=== PATIENT | female | born 1950 | race Caucasian/White ===

== ENCOUNTER 2016-11-13 11:37 | Day surgery (SDC) | payer MEDICARE ==
[2016-11-07 16:27] VITALS: BMI 25.7
[~2016-11-13 11:37] MED LIST: DEXAMETHASONE SOD PHOSPHATE 10 MG/ML 1 ML VIAL IV ONE; HYDROmorphone 1 MG/ML 1 ML SYRINGE IVP PRN; LACTATED RINGERS 1,000 ML IV SCH; LIDOCAINE 1% 20 ML VIAL (10MG/ML) FOR IV START INTRADERMA PRN; Pre Op ABX Message 1 EACH MISC MISCELLANE ONE; SCOPOLAMINE 1.5MG/72HR PATCH TRANSDERM ONE
[2016-11-13 12:03] VITALS: RESP 16; TEMP 98.1
[2016-11-13] MEDS ORDERED: PROPOFOL 10 MG/ML 20 ML VIAL IV ONE (13:08)
[2016-11-13] MEDS ORDERED: BUPIVACAINE (PF) 0.5% 30 ML VIAL SQ ONE (13:20)
[2016-11-13] MEDS ORDERED: LIDOCAINE 2% INJ 20 MG/ML SQ ONE (13:21)
[2016-11-13 13:54] VITALS: BP 156/72; PULSE 54
--- NOTE | 2016-11-20 22:02 | OP ---
DATE OF SERVICE: SURGEON: CRISTA TREVIÑO DO RN ADVANCED: PREOPERATIVE DIAGNOSIS: Mass, left ring finger. POSTOPERATIVE DIAGNOSIS: Mass, left ring finger. OPERATION: 1. Excision of mass, left ring finger. 2. Neurolysis ulnar digital nerve left ring finger. ANESTHESIA: ESTIMATED BLOOD LOSS: SPECIMENS REMOVED: COMPLICATIONS: OPERATIVE FINDINGS: GROSS PATHOLOGY: This was the 1 to 2 cm fairly well encapsulated mass in the volar ulnar proximal phalanx level of the left ring finger. It was adjacent and pressing on the ulnar digital nerve, but the nerve itself appeared to be uninvolved. The nature of the mass was not clear on direct inspection, it was fibrous in nature. It was sent to the lab for analysis. DESCRIPTION OF PROCEDURE: A 58-year-old woman is taken to the operative suite, given IV sedation, and a digital block was performed of her left ring finger. Hand was prepped and draped in the usual manner. It was elevated, exsanguinated and cuff inflated 250 mmHg. A zigzag incision was made over the palpable mass. The skin flaps were dissected. The ulnar digital nerve was identified proximal and distal to the mass. Under 4.5 loupe magnification, the mass was developed and excised and sent to the lab for analysis. As stated above, after neurolysis freeing the ulnar digital nerve from the mass. The nerve otherwise appeared to be intact. The tourniquet was released. Wound was thoroughly irrigated and hemostasis satisfactory. The patient taken to the recovery room in satisfactory condition.
== END 2016-11-13 14:12 | disposition home or self-care (01) ==
LOC: OR 11:37
PROVIDERS: ATTEND Orthopaedic Surgery Hand Surgery
DX: D21.12 Benign neoplasm of connective and other soft tissue of left upper limb, including shoulder (principal); I10 Essential (primary) hypertension; F39 Unspecified mood [affective] disorder; M19.042 Primary osteoarthritis, left hand; Z87.891 Personal history of nicotine dependence; Z79.899 Other long term (current) drug therapy
CPT/HCPCS: 88305; 88342; 88341; 26160; J2001; J1100; J2704

== ENCOUNTER → 2022-04-13 | Outpatient (CLI) | payer MEDICARE ==
--- NOTE | 2022-04-13 17:38 | BD ---
EXAMINATION TYPE: Axial Bone Density DATE OF EXAM: 04/13/2022 COMPARISON: NONE CLINICAL HISTORY: 72 years year old Female. ICD-10 CODE: M85.80 OTH DISRD OF BONE DENSITY Height: 64.5 Weight: 148.1 FRAX RISK QUESTIONS: Alcohol (3 or more units per day): NO Family History (Parent hip fracture): NO Glucocorticoids (More than 3mos): NO History of Fracture in Adulthood: NO Secondary Osteoporosis: 1. Type 1 Diabetes: NO 2. Hyperthyroidism: NO 3. Menopause before 45: NO 4. Malnutrition: NO 5. Chronic liver disease: NO Rheumatoid Arthritis: NO Current Tobacco Use: NO RISK FACTORS HISTORY OF: Hip Fracture (Right/Left): NO Spine Fracture: NO History of Wrist Fracture: NO Surgery to Spine/Hip(right/left)/Wrist (right/left): LT HIP REPLACEMENT AGE 68 Family History of Osteoporosis: NO Active: YES Diet low in dairy products/other sources of calcium: NO Postmenopausal woman: YES Take estrogen and/or progesterone medications: NO Lost more than 2 inches in height since high school: NO Frequent falls: NO Poor Health: NO Hyperparathyroidism: NO Adrenal Insufficiency: NO MEDICATIONS: Prednisone or other steroids: NO Thyroid Medications: NO Osteoporosis Medications: NO Additional Medications: BP MEDS, DEPRESSION MEDS, EXAM MEASUREMENTS: Bone mineral densitometry was performed using the [employer]. Bone mineral density as measured about the Lumbar spine is: ----- L1-L4(G/cm2): 1.331 T Score Values are as follows: ----- L1: -1.2 ----- L2: -1.1 ----- L3: 0.6 ----- L4: 5.6 ----- L1-L4: 1.3 BASELINE STUDY Bone mineral density about the R hip (g/cm2): 0.840 Score values are as follows: -----R Neck: -1.4 -----R Total: -2.0 BASELINE STUDY FRAX%s: The graph provided illustrates a 11.0% chance for a major osteoporotic fx and a 2.0% chance f or the hips probability for fx in 10 years time. IMPRESSION: Osteopenia (T Score between -2.5 and -1). There is slightly increased risk of fracture and the patient may be considered for treatment. Re-Screen 2-5 years. NOTE: T-SCORE=SD OF THE YOUNG ADULT MEAN.
--- NOTE | 2022-04-14 07:50 | MM ---
Reason for Exam: Screening (asymptomatic). Last mammogram was performed 1 year(s) and 11 month(s) ago. Patient History: Menarche at age 15. First Full-Term at age 20. Left ovary removed at age 48. Right ovary removed at age 48. Hysterectomy at age 48. Postmenopausal. Patient has history of breast feeding. Maternal aunt had breast cancer, age 28. Sister had ovarian cancer, age 72. Risk Values: Flor 5 year model risk: 1.4%. NCI Lifetime model risk: 3.3%. Prior Study Comparison: 01/01/2019 Bilateral MG screening mammo w CAD - 2, [facility]. 06/01/2020 Bilateral MG screening mammo w CAD - 2, [facility]. Tissue Density: The breast tissue is heterogeneously dense. This may lower the sensitivity of mammography. Findings: Analyzed By CAD. There is left breast biopsy clip and bilateral benign calcifications There is no suspicious group of microcalcifications or new suspicious mass in either breast. Overall Assessment: Benign, BI-RAD 2 Management: Screening Mammogram of both breasts in 1 year. A clinical breast exam by your physician is recommended on an annual basis and results should be correlated with mammographic findings. [facility] will attempt to contact patient to return for supplemental views and ultrasound if indicated. Electronically signed and approved by: James Weaver DO
== END | disposition home or self-care (01) ==
LOC: RADMAMWWP 07:16
PROVIDERS: ATTEND Family Medicine
DX: Z12.31 Encounter for screening mammogram for malignant neoplasm of breast (principal); M85.89 Other specified disorders of bone density and structure, multiple sites; Z78.0 Asymptomatic menopausal state; Z80.3 Family history of malignant neoplasm of breast
CPT/HCPCS: 77063; 77067; 77080

== ENCOUNTER → 2023-01-11 | Outpatient (CLI) | payer MEDICARE ==
[2023-01-11 11:43] LABS: INR 0.9 (<1.2); Partial Thromboplastin Time 25.2 sec (22.0-30.0); Prothrombin Time 9.9 sec (9.0-12.0)
[2023-01-11 17:03] LABS: HCT 45.5 % (37.2-46.3); HGB 14.8 d/dL (12.0-15.0); MCHC 32.5 d/dL (32.0-37.0); MCV 82.9 FL (80.0-97.0); Mean Platelet Volume 9.8 FL (9.5-12.2); NRBC Per 100 WBC 0 X 10*3/uL (0.00-0.01); Platelet Count 182 X 10*3/uL (140-440); RBC 5.49 X 10*6/uL (4.10-5.20); RDW 13.5 % (11.5-14.5); WBC 6.32 X 10*3/uL (4.50-10.00)
[2023-01-11 17:17] LABS: ALT 17 U/L (8-44); AST 19 U/L (13-35); Albumin 4.8 d/dL (3.8-4.9); Albumin/Globulin Ratio 2.29 Ratio (1.60-3.17); Alkaline Phosphatase 107 U/L (41-126); BUN/Creat Ratio 18.42 Ratio (12.00-20.00); Blood Urea Nitrogen 22.1 mg/dL (9.0-27.0); Calcium 9.7 mg/dL (8.7-10.3); Carbon Dioxide 29.1 mmol/L (21.6-31.8); Chloride 101 mmol/L (96-109); Globulin 2.1 d/dL (1.6-3.3); Glucose 131 mg/dL (70-110); Sodium 140 mmol/L (135-145); Total Bilirubin 0.3 mg/dL (0.3-1.2); Total Protein 6.9 d/dL (6.2-8.2)
[2023-01-11 22:27] LABS: Appearance,Urine Clear (Clear); Bilirubin,Urine Negative (Negative); Blood,Urine Negative (Negative); Color,Urine Yellow (Yellow); Ketones,Urine Trace (Negative); Nitrite,Urine Negative (Negative); Specific Gravity,Urine 1.022 (1.001-1.030)
[2023-01-11 22:41] LABS: Bacteria,Urine None Seen (None Seen)
== END | disposition home or self-care (01) ==
LOC: LABWHC1 10:33
PROVIDERS: ATTEND Orthopaedic Surgery Sports Medicine
DX: Z01.812 Encounter for preprocedural laboratory examination (principal); M16.11 Unilateral primary osteoarthritis, right hip; I21.3 ST elevation (STEMI) myocardial infarction of unspecified site; R94.31 Abnormal electrocardiogram [ECG] [EKG]
CPT/HCPCS: 36415; 80053; 81001; 85027; 85610; 85730; 87070; 93005

== ENCOUNTER 2023-01-23 08:38 | Day surgery (SDC) | payer MEDICARE ==
[~2023-01-23 08:38] MED LIST changes: +ACETAMINOPHEN TAB 500 MG TAB PO PRN; -DEXAMETHASONE SOD PHOSPHATE 10 MG/ML 1 ML VIAL IV ONE; +GABAPENTIN 300 MG CAP PO PRN; -HYDROmorphone 1 MG/ML 1 ML SYRINGE IVP PRN; -LACTATED RINGERS 1,000 ML IV SCH; -LIDOCAINE 1% 20 ML VIAL (10MG/ML) FOR IV START INTRADERMA PRN; +MELOXICAM 7.5 MG TAB PO PRN; -Pre Op ABX Message 1 EACH MISC MISCELLANE ONE; -SCOPOLAMINE 1.5MG/72HR PATCH TRANSDERM ONE; +TRANEXAMIC 1,000 MG/100ML-NACL 1,000 MG in SALINE 1 100ML.BAG IVPB PRN
[2023-01-23] MEDS ORDERED: LIDOCAINE 1% (10MG/ML) FOR IV START INTRADERMA PRN (09:35)
[2023-01-23] MEDS ORDERED: ONDANSETRON 4 MG/2 ML VIAL IVP ONE (09:35)
[2023-01-23] MEDS ORDERED: HYDROmorphone 0.5 MG/0.5 ML SYRINGE IVP PRN ×4 (09:35→10:37)
[2023-01-23] MEDS ORDERED: MIDAZOLAM 2 MG/2 ML VIAL IV PRN (09:35)
[2023-01-23] MEDS ORDERED: DEXAMETHASONE SOD PHOSPHATE 4 MG/ML 1 ML VIAL IV ONE (09:35)
[2023-01-23] MEDS: LACTATED RINGERS 1,000 ML IV SCH (09:42)
[2023-01-23] MEDS ORDERED: fentaNYL (PF) 50 MCG/1 ML VIAL IVP ONE (10:28)
[2023-01-23] MEDS ORDERED: MIDAZOLAM 2 MG/2 ML VIAL IVP ONE (10:28)
[2023-01-23] MEDS ORDERED: ONDANSETRON 4 MG/2 ML VIAL IVP PRN (10:37)
[2023-01-23] MEDS ORDERED: MAGNESIUM HYDROXIDE 2,400 MG/30 ML CUP PO PRN (10:37)
[2023-01-23] MEDS ORDERED: NALOXONE 0.4 MG/ML 1 ML VIAL IV PRN (10:37)
[2023-01-23] MEDS ORDERED: HYDROcodone/APAP 7.5-325MG 1 EACH TAB PO PRN ×2 (10:39)
[2023-01-23] MEDS ORDERED: MIDAZOLAM 2 MG/2 ML VIAL ONE (11:01)
[2023-01-23] MEDS ORDERED: LIDOCAINE 2% INJ 20 MG/ML (2 ML VIAL) ONE (11:01)
[2023-01-23] MEDS ORDERED: ROPIVACAINE 5 MG/ML 30 ML VIAL ONE (11:01)
[2023-01-23] MEDS ORDERED: PROPOFOL 10 MG/ML 20 ML VIAL IV ONE (11:01)
[2023-01-23] MEDS ORDERED: SODIUM CHLORIDE 0.9% (PF) 10 ML VIAL ONE (11:01)
[2023-01-23] MEDS ORDERED: TRANEXAMIC 1,000 MG/100ML-NACL PREMIX BAG ONE (11:01)
[2023-01-23] MEDS ORDERED: ceFAZolin 1,000 MG in SODIUM CHLORIDE 0.9% 1,000 ML IRRIGATION ONE (11:04)
[2023-01-23] MEDS ORDERED: ROPIVACAINE 5 MG/ML 30 ML VIAL MISCELLANE ONE ×2 (11:27→12:01)
[2023-01-23] MEDS ORDERED: LACTATED RINGERS 1,000 ML IV ONE (12:10)
--- NOTE | 2023-01-23 12:10 | P.OP ---
Date of Procedure: 01/23/23 Preoperative Diagnosis: Severe osteoarthritis of the right hip Postoperative Diagnosis: Severe osteoarthritis of the right hip Procedure(s) Performed: Right total hip arthroplasty with direct anterior approach Implants: [employer] Polarstem standard size 4 with a collar [employer] R3, 3 hole hemispherical acetabular shell, 52 mm [employer] Reflection 6.5 mm cancellus screw, 20 mm 2 [employer] R3, XLPE 20 acetabular liner [employer] Oxinium femoral head 36 m, +0 All components were press-fit. The articulation is Oxinium on polyethylene. Anesthesia: spinal Surgeon: Chace Hernandez Civil Service Clerk #1: Jayla Jones Estimated Blood Loss (ml): 300 Pathology: none sent Condition: stable Disposition: PACU Indications for Procedure: After failure of conservative treatment we discussed the surgical and nonsurgical treatment options at length. Patient wishes to proceed with a total hip arthroplasty with a direct anterior approach. Complications specific to this procedure were discussed at length, including but not limited to infection, leg length discrepancy, dislocation, nerve injury, and fracture. Covid-19 was also discussed at length with the patient, and they are aware of the current policies and procedures. The patient was given the option of delaying surgery, but they elect to proceed knowing these risks. Patient is aware of all these complications and informed consent was obtained Operative Findings: The operative findings are consistent with severe osteoarthritis of the right hip Description of Procedure: The patient was seen and evaluated in the preoperative area and the consent was reviewed. The operative site was marked with a skin marker. The patient verified the procedure and operative site. A KWAME block was placed by anesthesia in the preoperative area. The patient was then brought to the operating room and given preoperative antibiotics intravenously. 1 g of Tranexamic acid was also given intravenously. A spinal anesthetic was administered by the anesthesia department. The patient was then placed on the [place] table with the bony prominences well-padded. The hip area was then prepped with a ChloraPrep solution and draped in the usual sterile fashion. A universal timeout was then performed, which confirmed the patient's name, surgical site, ALLERGIES, and procedure being performed on the consent. Next the incision site was located at 1 cm distal and 4 cm lateral to the anterior superior iliac spine. The skin and subcutaneous tissues were sharply incised. Incision was carefully dissected down to the fascia overlying the tensor fascia carri muscle. This fascia was then incised in line with the muscle fibers. Care was taken to stay laterally in order to avoid injuring the lateral femoral cutaneous nerve. Next, using blunt finger dissection, the tensor fascia carri muscle was dissected off its investing fascia. The muscle was then carefully retracted laterally with a cobra retractor over the lateral neck of the femur. Next, the circumflex vessels were identified and cauterized using the Aquamantis device. The anterior hip capsule was then exposed. The capsule was then opened and an inverted T fashion. The retractors were then placed intracapsularly. The retractors were maintained intracapsular throughout the procedure. The proximal femur was then visualized. Fluoroscopic x-rays were then taken in order to evaluate the preoperative leg lengths. A small amount of traction was placed on the leg. The femoral neck was then osteotomized at the appropriate level above the lesser trochanter. A small wedge of bone was then removed from the remaining femoral head. Next, using a corkscrew the femoral head was removed from the acetabulum. On gross visual inspection, the femoral head had complete loss of articular cartilage and multiple periarticular osteophytes. The femoral head was then measured. Attention was then turned to the acetabulum. The acetabulum was exposed and any remaining labrum was excised. Sequential reaming of the acetabulum was performed using fluoroscopic guidance until there was a good bed of bleeding cancellus bone. When the appropriate size was reached, a trial was then placed. The position and fit of the trial was checked with fluoroscopy. The trial was then removed. Then, using fluoroscopic guidance, the final implant was impacted at 20 of anteversion and 40 of abduction, and fully seated in the acetabulum. 2 screws were then placed in the acetabulum. Again fluoroscopy was used to check position of the screws. Next, the liner was then impacted, with a 20 elevated liner located in the anterior superior quadrant. Component locking was confirmed. Attention was then directed to the femur. With the aid of the [place] table, the femur was externally rotated to approximately 130, extended, and adducted under the opposite leg. A side hook was then placed under the proximal femur, and the side hook elevator was used to elevate the proximal femur while releasing the capsule. Retractors were then placed. A capsular release was performed, as well as a release of the conjoined tendon, which afforded excellent visualization of the proximal femur. Next, a box osteotome was used to lateralize the proximal femur. A petal shaper hand was then used to locate the femoral canal. Sequential broaching was then performed with appropriate size which afforded excellent fixation in the proximal femur. A trial was then placed with appropriate head and neck, and the hip was gently reduced with the aid of the [place] table. Fluoroscopy was then used to check position of the components, as well as to evaluate the leg lengths and offset. The leg lengths and offset were measured as closely as possible to ensure stability of the hip. The hip was then gently dislocated and the trials were then removed. Final implants were then impacted and the hip was again reduced. Final fluoroscopic x-rays confirmed that the components were in anatomic position. The leg lengths and offset were measured and were found to coincide with the trial measurements. The hip was also taken through range of motion, and found to be stable. The hip was then copiously irrigated with antibiotic solution with pulsatile lavage. The hip was then irrigated with Irrisept solution. The soft tissues were then injected with a ropivacaine solution. A second dose of 1 g of Tranexamic acid was also given intravenously. The fascia was then closed with 2-0 strata fix suture. The subcutaneous tissue was closed with 3-0 Vicryl. The subcuticular tissue was closed with 3-0 strata fix suture. The skin was then closed with Exofin skin glue. After the glue and dried, and Optifoam silver impregnated dressing was applied. The patient was then transferred to the recovery room in stable condition. The teachers' assistant VEE White was required due to the complexity of surgery, and the need for skilled surgical product sales consultant for positioning, draping, exposure, retraction, and closure of the wound.
--- NOTE | 2023-01-23 12:27 | XR ---
Intraoperative/procedural fluoroscopic services were provided for right total hip arthroplasty. Total fluoroscopy time is 50.9 seconds with a total of 3 submitted images to PACS. Total DAP 2.6409 Gycm2. Please see the operative note for further details.
--- NOTE | 2023-01-23 13:22 | P.ANPRN ---
Procedure Note - Anesthesia - Nerve Block Performed Right Anibal Time Out Performed: Yes (:) Date of Procedure: 01/23/23 Procedure Start Time: Procedure Stop Time: :33 Location of Patient: PreOp Indication: Acute Post-Operative Pain, Requested by Surgeon (Dr Chace Hernandez) Sedation Type: Sedate with meaningful contact maintained Preparation: Sterile Prep Position: Supine Catheter: None Needle Types: Pajunk Needle Gauge: 21 Ultrasound used to visualize needle placement: Yes Ultrasound used to observe medication spread: Yes Injectate: 0.5% Ropivacaine (see comment for volume) (20cc + 5cc PF Normal saline) Blood Aspirated: No Pain Paresthesia on Injection Noted: No Resistance on Injection: Normal Image Stored and Saved: Yes Events: Uneventful and Well Tolerated
--- NOTE | 2023-01-23 13:23 | XR ---
EXAMINATION TYPE: XR Hip Limited RT DATE OF EXAM: 01/23/2023 1:19 PM INDICATION: Patient age:Female; 72 years old; Reason for study: Status post hip surgery, assess surgical alignment; PHH. COMPARISON: Fluoroscopic images of the right hip from earlier today TECHNIQUE: The right hip was examined in the frontal projection. FINDINGS: Postsurgical changes from right total hip arthroplasty. Hardware appears intact with approp riate alignment. There is associated soft tissue edema and gas. No acute fracture or dislocation. IMPRESSION: Postsurgical changes from right total hip arthroplasty. Hardware appears intact with appropriate alig nment.
[2023-01-23] MEDS: SODIUM CHLORIDE 0.9% 1,000 ML IV SCH (18:09)
[2023-01-23] MEDS ORDERED: SENNOSIDES-DOCUSATE SODIUM 1 EACH TAB PO SCH (21:00)
[2023-01-23] MEDS: ASPIRIN 325 MG TAB PO SCH (21:12)
[2023-01-24] MEDS: SODIUM CHLORIDE 0.9% 1,000 ML IV SCH (00:23)
--- NOTE | 2023-01-24 02:37 | P.CONS ---
History of Present Illness - Reason for Consult Consult date: 01/23/23 Medical management - Chief Complaint Right total hip arthroplasty - History of Present Illness Patient is a 72-year-old female with a known history of hypertension, osteoarthritis, hypothyroidism, anxiety was admitted to the hospital for elective right total hip arthroplasty. Patient tolerated procedure very well. Currently denies any complaints of chest pain or shortness of breath. Pain is fairly controlled. No complaints of nausea vomiting abdominal pain or diarrhea. Postoperatively blood pressure is elevated at 167/81 pulse 62, respirations 16 pulse ox 98% on room air. Patient underwent right hip total arthroplasty with direct anterior approach. Status post right total hip arthroplasty postoperative day 0 Uncontrolled hypertension likely due to pain. Improving. Anxiety/depression History of hypothyroidism GI and DVT prophylaxis Plan: Patient will be continued on current pain medications, bowel regimen and encourage incentive spirometry. Patient tested hydrochlorothiazide/lisinopril at home. Will be started on blood pressure medications as tolerated. Follow-up CBC and BMP tomorrow. Monitor H&H. We will continue to follow and further recommendations based on the clinical course. Thank you for your consult. Past Medical History Past Medical History: Hypertension, Osteoarthritis (OA), Thyroid Disorder History of Any Multi-Drug Resistant Organisms: None Reported Past Surgical History: Appendectomy, Hysterectomy, Joint Replacement Additional Past Surgical History / Comment(s): PARTIAL THYROIDECTOMY. BILATERAL CATARACT SURGERY., LEFT HIP REPLACEMENT Past Anesthesia/Blood Transfusion Reactions: Postoperative Nausea & Vomiting (PONV) Smoking Status: Never smoker - Past Family History Mother Family Medical History: Cancer Sister(s) Family Medical History: Cancer Additional Family Medical History / Comment(s): OVARIAN CANCER Medications and Allergies Home Medications Medication Instructions Recorded Confirmed Type Lisinopril-Hctz 20-12.5 mg 1 tab PO HS 11/07/16 01/23/23 History [Zestoretic 20-12.5] Citalopram Hydrobromide 20 mg PO QAM 01/16/23 01/23/23 History [Citalopram HBr] Aspirin 325 mg PO BID #60 tab 01/23/23 Rx HYDROcodone/APAP 7.5-325MG [[place] 1 - 2 tab PO Q6H PRN #32 tab 01/23/23 Rx 7.5-325] Sennosides [Senokot] 2 tab PO DAILY PRN #60 tablet 01/23/23 Rx Allergies Allergy/AdvReac Type Severity Reaction Status Date / Time kiwi Allergy SORES ON Verified 01/23/23 09:40 TONGUE Physical Exam Vitals: Vital Signs Temp Pulse Resp BP Pulse Ox 01/23/23 15:29 97.4 F L 66 14 134/70 98 01/23/23 14:49 62 16 167/81 100 01/23/23 14:00 61 16 141/76 99 01/23/23 13:45 52 L 16 140/70 100 01/23/23 13:30 53 L 16 153/70 100 01/23/23 13:15 50 L 16 156/63 100 01/23/23 13:00 52 L 16 139/70 100 01/23/23 12:45 58 L 16 133/74 100 01/23/23 12:26 98.2 F 65 16 111/65 96 01/23/23 10:38 58 L 16 175/80 98 01/23/23 09:36 98.0 F 60 16 172/77 98 Intake and Output 01/23/23 01/23/23 01/23/23 06:59 14:59 22:59 Intake Total 1801 480 Output Total 300 Balance 1501 480 Intake: IV 1801 Oral 480 Output: Estimated Blood Loss 300 Other: # Voids 1 Weight 70 kg 70 kg
[2023-01-24 07:55] VITALS: BP 126/63; PULSE 71; RESP 16; TEMP 98.6
[2023-01-24] MEDS: ASPIRIN 325 MG TAB PO SCH (08:42)
[2023-01-24] MEDS ORDERED: CITALOPRAM HYDROBROMIDE 20 MG TAB PO SCH (09:00)
--- NOTE | 2023-01-24 09:29 | P.DS ---
Providers Expected date of discharge: 01/24/23 Attending physician: Chace Hernandez Consults: 01/23/23 10:37 Consult Physician Routine Consulting Provider: Rogelio Coburn Consult Reason/Comments: medical management Do you want consulting provider notified?: Yes Primary care physician: Barbara King - Discharge Diagnosis(es) (1) Primary localized osteoarthritis of right hip Current Visit: Yes Status: Acute (2) Status post total replacement of right hip Current Visit: Yes Status: Acute Hospital Course: This is a 72-year-old female with known history of degenerative arthritis of the right hip. The patient presents for evaluation. After discussion and consideration patient elects to proceed with total hip arthroplasty with direct anterior approach. The patient is seen preoperatively by primary care physician and cleared for surgery. Patient is admitted to [facility] on 01/23/2023 for total hip arthroplasty with direct anterior approach. The procedure is performed without complication or sequelae. The patient is doing well postoperatively. Labs and vital signs are stable on day of discharge. On day of discharge patient's hip incision is healing well. There is minimal erythema. There is no drainage noted at this time. There is minimal soft tissue swelling to the hip and thigh. Patient has full foot and ankle motion without difficulty or pain. Neurovascular status to the lower extremity is intact. Patient is discharged to home in good condition. Please see med rec for accurate list of home medications. Patient Condition at Discharge: Good Plan - Discharge Summary Discharge Rx Participant: No New Discharge Prescriptions: New Aspirin 325 mg PO BID #60 tab HYDROcodone/APAP 7.5-325MG [[place] 7.5-325] 1 - 2 tab PO Q6H PRN #32 tab PRN Reason: Pain Sennosides [Senokot] 2 tab PO DAILY PRN #60 tablet PRN Reason: Constipation No Action Lisinopril-Hctz 20-12.5 mg [Zestoretic 20-12.5] 1 tab PO HS Citalopram Hydrobromide [Citalopram HBr] 20 mg PO QAM Discharge Medication List Lisinopril-Hctz 20-12.5 mg [Zestoretic 20-12.5] 1 tab PO HS 11/07/16 [History] Citalopram Hydrobromide [Citalopram HBr] 20 mg PO QAM 01/16/23 [History] Aspirin 325 mg PO BID #60 tab 01/23/23 [Rx] HYDROcodone/APAP 7.5-325MG [[place] 7.5-325] 1 - 2 tab PO Q6H PRN #32 tab 01/23/23 [Rx] Sennosides [Senokot] 2 tab PO DAILY PRN #60 tablet 01/23/23 [Rx] Follow up Appointment(s)/Referral(s): Chace Hernandez DO [Doctor of Osteopathic Medicine] - 02/05/23 2:00 pm (With Jayla) Ambulatory/Diagnostic Orders: Walker [DME.AMB1] Location: None Selected Activity/Diet/Wound Care/Special Instructions: Weightbearing as tolerated with walker. Leave dressing intact. Dressing may be removed by home care nurse or by patient in 7 days. Then change dressing twice daily until follow up. May shower with initial dressing intact and after removal. If dressing become saturated, please remove. Please take aspirin 325mg twice daily for 30 days to prevent blood clots. Recommend use of compression stockings daily until follow up to help prevent swelling and blood clots. May remove at night before sleeping. Please follow-up with [facility] weeks and [facility] concerns, . Discharge Disposition: HOME WITH HOME HEALTH SERVICES
[2023-01-24 11:19] LABS: BUN/Creat Ratio 20.62 Ratio (12.00-20.00); Blood Urea Nitrogen 16.5 mg/dL (9.0-27.0); Calcium 8.4 mg/dL (8.7-10.3); Carbon Dioxide 27.7 mmol/L (21.6-31.8); Chloride 101 mmol/L (96-109); Glucose 117 mg/dL (70-110); Sodium 136 mmol/L (135-145)
[2023-01-24 12:18] LABS: Basophils # (A) 0.02 X 10*3/uL (0.00-0.10); Basophils % (A) 0.2 %; Eosinophils # (A) 0.02 X 10*3/uL (0.04-0.35); Eosinophils % (A) 0.2 %; HCT 29.3 % (37.2-46.3); HGB 9.9 d/dL (12.0-15.0); Lymphocytes # (A) 1.23 X 10*3/uL (0.90-5.00); Lymphocytes % (A) 12.8 %; MCH 27.7 pg (27.0-32.0); MCHC 33.8 d/dL (32.0-37.0); MCV 81.8 FL (80.0-97.0); Mean Platelet Volume 10.9 FL (9.5-12.2); Monocytes # (A) 0.88 X 10*3/uL (0.20-1.00); Monocytes % (A) 9.2 %; NRBC Per 100 WBC 0 X 10*3/uL (0.00-0.01); Neutrophils # (A) 7.42 X 10*3/uL (1.80-7.70); Neutrophils % (A) 77.4 %; Platelet Count 137 X 10*3/uL (140-440); RBC 3.58 X 10*6/uL (4.10-5.20); RDW 13.3 % (11.5-14.5); WBC 9.59 X 10*3/uL (4.50-10.00)
[2023-01-24] MEDS: LACTATED RINGERS 1,000 ML IV SCH (12:23)
== END 2023-01-24 12:56 | disposition home health service (06) ==
LOC: OR 08:38 → 4SSUR 12:26 → OR 01-24 12:56
PROVIDERS: ATTEND Orthopaedic Surgery
DX: M16.11 Unilateral primary osteoarthritis, right hip (principal); G89.18 Other acute postprocedural pain; I10 Essential (primary) hypertension; E07.9 Disorder of thyroid, unspecified; Z90.710 Acquired absence of both cervix and uterus; Z90.49 Acquired absence of other specified parts of digestive tract; Z79.899 Other long term (current) drug therapy
CPT/HCPCS: 97161; 97535; 97165; 64447; 86900; 86901; 80048; 85025; 86850; 73501; 27130; C1776; J2250; J1100; J0690 ×3; J2405; J2795; J1170; J3010

== ENCOUNTER → 2023-10-02 | Outpatient (CLI) | payer MEDICARE ==
--- NOTE | 2023-10-04 20:01 | MM ---
Reason for Exam: Screening (asymptomatic). Last mammogram was performed 1 year(s) and 5 month(s) ago. Patient History: Menarche at age 15. First Full-Term at age 20. Left ovary removed at age 48. Right ovary removed at age 48. Hysterectomy at age 48. Postmenopausal. Patient has history of breast feeding. Maternal aunt had breast cancer, age 28. Maternal aunt had ovarian cancer. Sister had ovarian cancer, age 72. Risk Values: Flor 5 year model risk: 1.4%. NCI Lifetime model risk: 3.1%. Prior Study Comparison: 01/01/2019 Bilateral MG screening mammo w CAD - 2, [facility]. 06/01/2020 Bilateral MG screening mammo w CAD - 2, [facility]. 04/13/2022 Bilateral MG 3D screening mammo w/cad, [facility]. Tissue Density: The breasts are heterogeneously dense, which may obscure small masses. Findings: Analyzed By CAD. Unchanged asymmetric densities bilaterally. No persisting abnormality on 3-D images. There is no suspicious group of microcalcifications or new suspicious mass in either breast. Overall Assessment: Benign, BI-RAD 2 Management: Screening Mammogram of both breasts in 1 year. . Patient should continue monthly self-breast exams. A clinical breast exam by your physician is recommended on an annual basis. This exam should not preclude additional follow-up of suspicious palpable abnormalities. Note on Flor scores and lifetime risk: 1. A Flor score greater than 3% is considered moderate risk. If this is the case, consider specialist referral to assess eligibility for a risk reducing agent. 2. If overall lifetime risk for the development of breast cancer is 20% or higher, the patient may qualify for future screening with alternating mammogram and breast MRI. Electronically signed and approved by: Lloyd Tran M.D. Radiologist
== END | disposition home or self-care (01) ==
LOC: RADMAMWWP 15:01
PROVIDERS: ATTEND Family Medicine
DX: Z12.31 Encounter for screening mammogram for malignant neoplasm of breast (principal); Z80.3 Family history of malignant neoplasm of breast; Z78.0 Asymptomatic menopausal state
CPT/HCPCS: 77063; 77067

== ENCOUNTER → 2024-04-22 | Outpatient (CLI) | payer MEDICARE ==
--- NOTE | 2024-04-27 22:37 | BD ---
EXAMINATION TYPE: Axial Bone Density DATE OF EXAM: 04/22/2024 CLINICAL HISTORY: 74 years old Female. ICD-10 CODE: M85.80 OTH DISRD OF BONE DENSITY AND STRUCTURE, UN , Additional History: Height: 5 ft 4 1/2 in Weight: 150 FRAX RISK QUESTIONS: Alcohol (3 or more units per day): no Family History (Parent hip fracture): no Glucocorticoids (More than 3mos): no (Ex: prednisone, prednisolone, methylprednisolone, dexamethasone, and hydrocortisone). History of Fracture in Adulthood: no Secondary Osteoporosis: 1. Type 1 Diabetes: no 2. Hyperthyroidism: no 3. Menopause before 45: yes 4. Malnutrition: no 5. Chronic liver disease: no Rheumatoid Arthritis: no Current Tobacco Use: no RISK FACTORS HISTORY OF: Surgery to Spine/Hip(right/left)/Wrist (right/left): aaron hip replacement When: rt 2022/ lt 2018 MEDICATIONS: Thyroid Medications: none Osteoporosis Medications: none EXAM MEASUREMENTS: Bone mineral densitometry was performed using the [employer]. Bone mineral density as measured about the Lumbar spine is: ----- L1-L4(G/cm2): 1.368 T Score Values are as follows: ----- L1: -1.3 ----- L2: -1.0 ----- L3: 1.2 ----- L4: 5.9 ----- L1-L4: 1.6 Z Score Values are as follows: ----- L1: 0.4 ----- L2: 0.7 ----- L3: 2.8 ----- L4: 7.6 ----- L1-L4: 3.2 Bone mineral density has: increased 2.8 % since study of: 2021 Bone mineral density about the L Wrist (g/cm2): 0.577 T Score values are as follows: -----Dist. R+U: -2.2 -----Prox. R+U: -0.6 -----Radius total: -1.6 Z Score values are as follows: -----Dist. R+U: 0.2 -----Prox. R+U: 1.7 -----Radius total: 0.8 first time wrist has been no frax done IMPRESSION: Osteopenia (T Score between -2.5 and -1). There is slightly increased risk of fracture and the patient may be considered for treatment. Re-Screen 2-5 years. NOTE: T-SCORE=SD OF THE YOUNG ADULT MEAN. [facility], , 04/27/2024 10:34 PM
== END | disposition home or self-care (01) ==
LOC: RADBDWWP 15:51
PROVIDERS: ATTEND Family Medicine
DX: M85.89 Other specified disorders of bone density and structure, multiple sites (principal)
CPT/HCPCS: 77080